=== PATIENT | female | born 1955 | race Caucasian/White ===

== ENCOUNTER → 2019-01-19 | Outpatient (CLI) | payer BC ==
--- NOTE | 2019-01-23 11:55 | PCVCIMAG ---
APPROVED REPORT Study performed: 01/19/2019 14:41:35 Exam: Stress Echocardiogram Indication: Palpitations, PVCs,Dyslipidemia Patient Location: Echo lab Stress Nurse: Citlali Mccord RN Room #: 2 Status: routine Ht: 5 ft 6 in HR: 73 bpm BP: 142/86 mmHg Rhythm: NSR with frequent PVCs Medical History Medical History: Prediabetes Previous Cardiac Procedures: none Pretest Chest Pain Characteristics: No chest pain Exercise History: Physically active Procedure The patient underwent an Exercise Stress Test using the Bebo Protocol. Blood pressure, heart rate, and EKG were monitored. An Echocardiogram was performed by master fire control technician in four stages in quad fashion. At peak stress, four selected images were obtained and placed side by side with resting images for comparison. Stress Test Details Stress Test: Exercise stress testing was performed using a Bebo protocol. HR Resting HR: 73 bpmMax Heart Rate (APMHR): 157 bpm Max HR Achieved: 141 bpmTarget HR (85% APMHR): 133 bpm % of APMHR: 89 Recovery HR: 80 bpm HR response to stress: Normal HR response to stress BP Resting BP: 142/86 mmHg Max BP: 168/80 mmHg Recovery BP: 118/68 mmHg BP response to stress: Normal blood pressure response to stress. ECG Resting ECG: Sinus Rhythm with PVCs Stress ECG: Sinus Rhythm ST Change: Non-ischemic Maximum ST Deviation: 0 mm Arrhythmia: VPC's Recovery ECG: Sinus Rhythm Recovery ST Change: Non-ischemic Recovery ST Deviation: 0 mm Recovery Arrhythmia: None until heart rate dropped into the 80s Clinical Reason for Termination: Maximal effort Stress Symptoms: none Exercise duration: 9 min 21 sec Highest Stage Achieved: Stage 4: 4.2 mph at 16% grade. Exercise capacity: 11.1 METs Overall Exercise Capacity for Age: Good Scale: Active Angina Score: None No complications. Stress ECG Conclusion Clinical: Non-ischemic ECG: Non-ischemic Ernst Treadmill Score is 9.0 which is Low risk. Pre-Stress Echo The resting Echocardiogram showed normal left ventricular contractility with an estimated Ejection Fraction of about 55-60%. Normal wall motion in all segments on baseline images. Post-Stress Echo The stress Echocardiogram showed normal left ventricular contractility with an estimated Ejection Fraction of about 65-70%. Normal augmentation of wall motion in all segments on post stress images. Clinical No clinical or ECG evidence for ischemia. Conclusion Clinical Response: Non-ischemic Exercise Capacity: Average Stress ECG Response: Non-ischemic Stress Echo Images: Non-ischemic No clinical, EKG or echocardiographic evidence for ischemia. No echocardiographic evidence for exercise induced ischemia. Normal stress echocardiogram with maximal exercise stress. Mild mitral regurgitation. No regurgitation or stenosis present on pulmonic, tricuspid or aortic valves. <Conclusion> No clinical, EKG or echocardiographic evidence for ischemia. No echocardiographic evidence for exercise induced ischemia. Normal stress echocardiogram with maximal exercise stress. Mild mitral regurgitation. No regurgitation or stenosis present on pulmonic, tricuspid or aortic valves.
== END | disposition home or self-care (01) ==
LOC: PCVCIMAG 14:31
PROVIDERS: ATTEND Internal Medicine
DX: I49.3 Ventricular premature depolarization (principal); R00.2 Palpitations; E78.5 Hyperlipidemia, unspecified
CPT/HCPCS: 93325; 93351